=== PATIENT | female | born 1975 | race Caucasian/White ===

== ENCOUNTER 2020-09-19 18:25 | Emergency (ER) | payer OTHER ==
[~2020-09-19] VITALS: Ht 175.3 cm; Wt 79.5 kg
[~2020-09-19 18:25] MED LIST: LIDOcaine 1% 30ml preserv. free vial ONE
[2020-09-19] MEDS ORDERED: mupirocin 2% ointment 22GM TP STA (19:56)
[2020-09-19] MEDS ORDERED: HYDROcodone/acetaminophen 5mg/325mg tablet PO ONE (21:05)
[2020-09-19] MEDS ORDERED: TETanus/Pertussis (Acell)/Diphther VAC/PF (Tdap-Adult) 0.5ml syringe IMVAC ONE (21:05)
[2020-09-19] MEDS ORDERED: AMOX-422 PO (21:09)
[2020-09-19 21:12] VITALS: BP 126/85
== END 2020-09-19 21:19 | disposition home or self-care (01) ==
LOC: ER 18:26
DX: S81.851A Open bite, right lower leg, initial encounter (principal); W54.0XXA Bitten by dog, initial encounter; Y93.89 Activity, other specified; Y92.89 Other specified places as the place of occurrence of the external cause; Y99.8 Other external cause status
CPT/HCPCS: 12004; 90471; 90715; 99284; J2001